=== PATIENT | male | born 1990 | race Two or more races ===

== ENCOUNTER 2024-09-11 18:40 | Emergency (ER) | payer OTHER ==
[~2024-09-11] VITALS: Ht 162.6 cm; Wt 73.2 kg
[2024-09-11 18:58] VITALS: BP 117/77; PULSE 98; RESP 18; TEMP 97.6; O2SAT 97
[2024-09-11] MEDS ORDERED: HUR60 MT (19:02)
[2024-09-11] MEDS ORDERED: AMOX875T4 PO (19:03)
[2024-09-11] MEDS ORDERED: IBUP-1456 PO (19:03)
--- NOTE | 2024-09-11 19:03 | ED.PDOC ---
Eye-HPI HPI Comments 34-year-old male presents to ER with complaints of toothache x2 weeks. Patient reports he has been experiencing a left lower toothache x2 weeks. He rates his current left lower toothache pain a 5/10. Notes he has been taking ibuprofen for his pain with slight relief. Patient presents to ER ambulatory on arrival, with steady gait, in no distress. Denies fever, body aches, chills, facial swelling/skin changes, headache or any further symptoms/complaints Chief Complaint: Tooth Pain Time Seen by MD: 18:41 Primary Care Provider: UNKNOWN Reviewed Notes: Nurses Notes, Medications, Allergies Allergies: Coded Allergies: NO KNOWN ALLERGIES (Unverified , 09/11/24) Home Meds Active Scripts Ibuprofen (Ibuprofen) 800 Mg Tab, 1 TAB PO TID PRN, #30 TAB 0 Refills Prov:TRESA BYNUM 09/11/24 Amoxicillin & Pot Clavulanate (Amoxicillin/Potassium Cla) 875 Mg Tab, 1 TAB PO BID for 7 Days, #14 TAB 0 Refills Prov:RTESA BYNUM 09/11/24 Benzocaine (Dental) (HURRICAINE SPRAY) 1 Spr Sp, 1 SPR MT QIDP, #1 SPRAY 0 Refills Prov:TRESA BYNUM 09/11/24 Information Source: Patient Past Medical History PAST MEDICAL HISTORY: Denies Surgical History (Other): left hip replacement Family History Family History: Unknown Social History Smoker: Non-Smoker Alcohol: Denies ETOH Use Drugs: Denies Drug Use Lives In: Home Constitutional: denies: chills, diaphoresis, fatigue, fever, malaise, sweats, weakness, others EENTM: reports: others (As stated in HPI) Respiratory: denies: cough, hemoptysis, orthopnea, SOB at rest, shortness of breath, SOB with excertion, stridor, wheezing, others Cardiovascular: denies: chest pain, dizzy spells, diaphoresis, Dyspnea on exertion, edema, irregular heart beat, left arm pain, lightheadedness, palpitati ons, PND, syncope, others Gastrointestinal: denies: abdomen distended, abdominal pain, blood streaked bowels, constipated, diarrhea, dysphagia, difficulty swallowing, hematemesis, melena, nausea, poor appetite, poor fluid intake, rectal bleeding, rectal pain, vomiting, others Genitourinary: denies: burning, dysuria, flank pain, frequency, hematuria, incontinence, penile discharge, penile sore, pain, testicle pain, testicle swelling, urgency, others Neurological: denies: dizziness, fainting, headache, left sided numbness, left sided weakness, numbness, paresthesia, pre-existing deficit, right sided numbness, right sided weakness, seizure, speech problems, tingling, tremors, weakness, others Musculoskeletal: denies: back pain, gout, joint pain, joint swelling, muscle pain, muscle stiffness, neck pain, others Integumetry: denies: bruises, change in color, change in hair/nails, dryness, laceration, lesions, lumps, rash, wounds, others Allergic/Immunocompromised: denies: Difficulty Healing, Frequent Infections, Hives, Itching, others Hematologic/Lymphatic: denies: anemia, blood clots, easy bleeding, easy bruising, swollen glands, others Endocrine: denies: excessive hunger, excessive sweating, excessive thirst, excessive urination, flushing, intolerance to cold, intolerance to heat, unexplained weight gain, unexplained weight loss, others Psychiatric: denies: anxiety, bipolar disorder, depression, hopeless, panic disorder, schizophrenia, sleepless, suicidal, others Physical Exam General Appearance: No Apparent Distress HEENT: Pharynx Normal, TMs Normal, Other (Mild gum swelling/erythema surrounding teeth #36-37. Overall poor dental hygiene appreciated. 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 Was a procedure done?: No Sedation Sedation?: No EENT DIFF Eye: N/A Mouth: Thrush, Other (fractured tooth, dental abscess) X-Ray, Labs, Meds, VS Vital Signs Date Time Temp Pulse Resp B/P (MAP) Pulse Ox O2 Delivery O2 Flow Rate FiO2 09/11/24 18:58 98 18 97 Room Air 09/11/24 18:58 97.6 98 18 117/77 (90) 97 97.6 09/11/24 18:49 97.6 98 18 117/77 (90) 97 Toradol 60 mg IM ordered Advised to follow up with PCP and dentist in 1-2 days Patient verbalized understanding and agreeable with current plan of care Advised to return to ER immediately if symptoms worsen Time of 1ST Reevaluation: 18:44 Reevaluation 1ST: N/A Patient Education/Counseling: Diagnosis, Treatment, Prognosis, Need For Follow Up Family Education/Counseling: No Family Present Departure 1 Departure Time of Disposition: 19:00 Impression: Primary Impression: Dental infection Disposition: 01 HOME / SELF CARE / HOMELESS Condition: Stable e-Prescriptions Ibuprofen (Ibuprofen) 800 Mg Tab 1 TAB PO TID PRN, #30 TAB 0 Refills Prov: TRESA BYNUM 09/11/24 Amoxicillin & Pot Clavulanate (Amoxicillin/Potassium Cla) 875 Mg Tab 1 TAB PO BID for 7 Days, #14 TAB 0 Refills Prov: TRESA BYNUM 09/11/24 Benzocaine (Dental) (HURRICAINE SPRAY) 1 Spr Sp 1 SPR MT QIDP, #1 SPRAY 0 Refills Prov: TRESA BYNUM 09/11/24 Discharged With: Self Critical Care Note Critical Care Time?: No Stability Stability form required: No Heart Score Heart Score: Heart Score Response (Comments) Value History N/A 0 EKG N/A 0 Age N/A 0 Risk Factors N/A 0 Troponin N/A 0 Total 0 TRESA BYNUM Sep 11, 2024 19:03
[2024-09-11] MEDS: KETOROLAC TROMETH 60MG/2ML VIAL IM ONE (19:04)
== END 2024-09-11 19:21 | disposition home or self-care (01) ==
LOC: ER 18:40
DX: K04.7 Periapical abscess without sinus (principal); Z79.899 Other long term (current) drug therapy; Z98.890 Other specified postprocedural states
CPT/HCPCS: 96372; 99283; J1885